=== PATIENT | male | born 1960 | race African-American/Black ===

== ENCOUNTER 2019-07-07 15:04 | Emergency (ER) | payer OTHER ==
[~2019-07-07] VITALS: Ht 182.9 cm; Wt 95.3 kg
[2019-07-07] MEDS ORDERED: TOPROL XL25 M1 (15:21)
[2019-07-07] MEDS ORDERED: CLARITIN10 M1 (15:22)
[2019-07-07] MEDS ORDERED: DIOVAN320 MG PO (15:22)
[2019-07-07] MEDS ORDERED: ASPIR 8181 MG (15:22)
[2019-07-07] MEDS ORDERED: REPATHA SU140 MG/1 M (15:24)
[2019-07-07] MEDS ORDERED: WIXELA 500-501 EACH (15:25)
[2019-07-07] MEDS ORDERED: AZOR 10-20 MG1 EACH (15:25)
== END 2019-07-07 19:36 | disposition home or self-care (01) ==
LOC: ER 15:04
DX: M62.838 Other muscle spasm (principal)